=== PATIENT | female | born 1955 | race Caucasian/White ===

== ENCOUNTER 2021-03-11 00:03 | Observation (INO) | payer BC ==
[2021-03-11] MEDS ORDERED: SODIUM CHLORIDE 0.9% 1,000 ML IV STA (01:54)
--- NOTE | 2021-03-11 02:40 | ED ---
Fever HPI - General Chief Complaint: Fever Stated Complaint: Infection Time Seen by Provider: 03/11/21 00:22 Source: EMS Mode of arrival: EMS - History of Present Illness Initial Comments: This patient is a 65-year-old woman who presents here as a transfer from the [facility] and [facility]. The patient has history of stage IV colon cancer with metastases to liver. She had recent chemotherapy middle of January 2021. She had been in [facility] visiting her mother. The patient had the onset of fevers in the morning and then went to the other hospital, s ubsequently being transferred here. The patient is reported to have had chest x-ray that was read as no infiltrate. Urinalysis was negative. Chemistries and CBC unremarkable. Patient had blood and urine cultures which are pending. When I interview the patient, she denies pains. She denies symptoms of infection other than noting the fever. MD Complaint: fever Onset/Timin -: days(s) Associated Symptoms: denies other symptoms Treatments Prior to Arrival: Acetaminophen, other - Related Data Allergies Allergy/AdvReac Type Severity Reaction Status Date / Time nitrofurantoin Allergy Rash/Hives Verified 03/11/21 00:29 [From Macrodantin] Penicillins Allergy Rash/Hives Verified 03/11/21 00:29 sulfamethoxazole Allergy Rash/Hives Verified 03/11/21 00:28 [From Septra] trimethoprim [From Septra] Allergy Rash/Hives Verified 03/11/21 00:28 Review of Systems ROS Statement: Those systems with pertinent positive or pertinent negative responses have been documented in the HPI. ROS Other: All systems not noted in ROS Statement are negative. Constitutional: Reports: fever. Denies: chills, weakness ENT: Denies: ear pain, throat pain Respiratory: Denies: cough, dyspnea, wheezes Cardiovascular: Denies: chest pain, palpitations Gastrointestinal: Reports: nausea. Denies: abdominal pain, vomiting, diarrhea Genitourinary: Denies: dysuria, frequency, hematuria Musculoskeletal: Denies: back pain Skin: Denies: rash Neurological: Denies: headache, weakness Past Medical History Past Medical History: Cancer Additional Past Medical History / Comment(s): Stage 4 colon cancer dx 07/2019. History of Any Multi-Drug Resistant Organisms: None Reported Past Surgical History: Appendectomy, Section, Cholecystectomy, Joint Replacement Additional Past Surgical History / Comment(s): Bilat knee replacements, hemacolectomy, hepatic arterial infusion pump Past Psychological History: No Psychological Hx Reported Smoking Status: Never smoker Past Alcohol Use History: None Reported Past Drug Use History: Marijuana General Exam General appearance: alert, in no apparent distress Head exam: Present: atraumatic, normocephalic Eye exam: Present: normal appearance. Absent: scleral icterus, conjunctival injection ENT exam: Present: normal oropharynx Respiratory exam: Present: normal lung sounds bilaterally. Absent: respiratory distress, wheezes, rales, rhonchi, stridor Cardiovascular Exam: Present: regular rate, normal rhythm, normal heart sounds. Absent: systolic murmur, diastolic murmur, rubs, gallop GI/Abdominal exam: Present: soft. Absent: distended, tenderness, guarding, rebound, rigid, mass Extremities exam: Present: normal inspection, normal capillary refill. Absent: pedal edema, calf tenderness Back exam: Present: normal inspection. Absent: CVA tenderness (R), CVA tenderness (L) Neurological exam: Present: alert Skin exam: Present: warm, dry, intact, normal color. Absent: rash Course Vital Signs 03/11/21 03/11/21 00:14 01:30 Temperature 98.1 F Pulse Rate 90 84 Respiratory 16 18 Rate Blood Pressure 144/81 146/76 O2 Sat by Pulse 100 96 Oximetry Disposition Referrals: Nonstaff,Physician [Primary Care Provider] - 1-2 days
[2021-03-11] MEDS ORDERED: NALOXONE 0.4 MG/ML 1 ML VIAL IV PRN (02:45)
[2021-03-11] MEDS ORDERED: ACETAMINOPHEN TAB 325 MG TAB PO PRN (02:45)
[2021-03-11] MEDS ORDERED: ONDANSETRON 4 MG/2 ML VIAL IVP PRN (02:45)
[2021-03-11 02:55] LABS: Basophils # (A) 0.1 k/uL (0-0.2); Basophils % (A) 1 %; Eosinophils # (A) 0.1 k/uL (0-0.7); Eosinophils % (A) 0 %; HCT 38.7 % (34.0-46.0); HGB 13.2 gm/dL (11.4-16.0); Lymphocytes # (A) 1.1 k/uL (1.0-4.8); Lymphocytes % (A) 10 %; MCH 32.8 pg (25.0-35.0); MCHC 34.1 g/dL (31.0-37.0); MCV 96.1 fL (80.0-100.0); Mean Platelet Volume 7.5; Monocytes # (A) 1.1 k/uL (0-1.0); Monocytes % (A) 11 %; Neutrophils # (A) 8.1 k/uL (1.3-7.7); Neutrophils % (A) 75 %; Platelet Count 210 k/uL (150-450); RBC 4.03 m/uL (3.80-5.40); RDW 13.7 % (11.5-15.5); WBC 10.8 k/uL (3.8-10.6)
[2021-03-11 03:12] LABS: ALT 32 U/L (4-34); AST 44 U/L (14-36); African American GFR (CKD) >90 (>60 ml/min/1.73 sqM); Albumin 3.4 g/dL (3.5-5.0); Alkaline Phosphatase 264 U/L (38-126); Anion Gap 6 mmol/L; Blood Urea Nitrogen 14 mg/dL (7-17); Calcium 9.5 mg/dL (8.4-10.2); Carbon Dioxide 24 mmol/L (22-30); Chloride 110 mmol/L (98-107); Glucose 143 mg/dL (74-99); Non-African American GFR(CKD) 84 (>60 ml/min/1.73 sqM); Potassium 4.1 mmol/L (3.5-5.1); Sodium 140 mmol/L (137-145); Total Bilirubin 1.1 mg/dL (0.2-1.3); Total Protein 6.4 g/dL (6.3-8.2)
[2021-03-11 03:20] LABS: Appearance,Urine Clear (Clear); Bilirubin,Urine Negative (Negative); Blood,Urine Negative (Negative); Color,Urine Light Yellow; Glucose,Urine (UA) Negative (Negative); Ketones,Urine Negative (Negative); Leukocyte Esterase,Urine Small (Negative); Mucus,Urine Rare /hpf; Nitrite,Urine Negative (Negative); Protein,Urine Negative (Negative); RBC,Urine <1 /hpf (0-5); Specific Gravity,Urine 1.009 (1.001-1.035); Urobilinogen,Urine <2.0 mg/dL (<2.0); WBC,Urine 10 /hpf (0-5)
[2021-03-11] MEDS: SODIUM CHLORIDE 0.9% 1,000 ML IV SCH ×3 (03:27→22:19)
[2021-03-11] MEDS ORDERED: PANTOPRAZOLE 40 MG TABLET PO STA (07:24)
[2021-03-11] MEDS: FAMOTIDINE 20 MG TAB PO SCH ×2 (07:45→22:18)
[2021-03-11] MEDS ORDERED: LIDOCAINE-PRILOCAINE 2.5-2.5% CREAM 5 GM TUBE TOPICAL PRN (10:24)
[2021-03-11] MEDS ORDERED: ONDANSETRON ODT 4 MG TAB PO PRN (10:24)
[2021-03-11] MEDS ORDERED: PANTOPRAZOLE 40 MG TABLET PO SCH (10:30)
--- NOTE | 2021-03-11 11:22 | P.HPIM ---
History of Present Illness Patient is a pleasant 65-year-old female was visiting [facility] found to have fever when she was visiting her mother is of which have blood cultures were obtained although workup was done which was negative except for elevated white blood cell count. Patient does have history of colon cancer received chemotherapy and month of January patient has metastatic had metastatic disease. Patient denied any shortness of breath increases swelling in the lower legs her pain and leg in the legs. Patient didn't have any fever here. Chest x-ray did not show any significant abnormality from [place] as per the radiologist's reading. Urinalys is there was negative urinalysis here is mildly abnormal but not impressive for infection patient doesn't have any UTI symptoms of pneumonia symptoms patient has some musculoskeletal neck pain beyond which are all other review of systems is negative. Patient has a Fever patient doesn't have any flulike symptoms either. Because of which I wanted to rule out DVT because of which I ordered d-dimer which came and elevated, will order CT angios the chest rule out any pulmonary embolism are also will order Doppler of the bilateral lower extremities. If they are negative, patient can be discharged will discharge the patient on empiric antibiotics. Patient is presently relatively stable. REVIEW OF SYSTEMS: CONSTITUTIONAL: no malaise, no fatigue. HEENT: No recent visual problems or hearing problems. Denied any sore throat. CARDIOVASCULAR: No chest pain, orthopnea, PND, no palpitations, no syncope. PULMONARY: No shortness of breath, no cough, no hemoptysis. GASTROINTESTINAL: No diarrhea, no nausea, no vomiting, no abdominal pain. NEUROLOGICAL: No headaches, no weakness, no numbness. HEMATOLOGICAL: Denies any bleeding or petechiae. GENITOURINARY: Denies any burning micturition, frequency, or urgency. MUSCULOSKELETAL/RHEUMATOLOGICAL: Denies any joint pain, swelling, or any muscle pain. ENDOCRINE: Denies any polyuria or polydipsia. The rest of the 14-point review of systems is negative. PHYSICAL EXAMINATION: GENERAL: The patient is alert and oriented x3, not in any acute distress. Well developed, well nourished. HEENT: Pupils are round and equally reacting to light. EOMI. No scleral icterus. No conjunctival pallor. Normocephalic, atraumatic. No pharyngeal erythema. No thyromegaly. CARDIOVASCULAR: S1 and S2 present. No murmurs, rubs, or gallops. PULMONARY: Chest is clear to auscultation, no wheezing or crackles. ABDOMEN: Soft, nontender, nondistended, normoactive bowel sounds. No palpable organomegaly. MUSCULOSKELETAL: No joint swelling or deformity. EXTREMITIES: No cyanosis, clubbing, or pedal edema. NEUROLOGICAL: Gross neurological examination did not reveal any focal deficits. SKIN: No rashes. Assessment and plan -Fever, systemic inflammatory response: Etiology of this is not clear at this time we will rule out any DVT or pulmonary embolism no clear evidence of infection at this time patient will be continue on empiric the antibiotic can be viral infection at can be secondary to malignancy itself. Awaiting CT angios the chest and Doppler bilateral lower extremities. If they're negative patient will be discharged on 30 days of Ceftin and will follow-up on the cultures that were done here. -History of for metastatic colon cancer for which patient is receiving chemotherapy was diagnosed in month of July last chemo was in January -Leukocytosis secondary to assessment #1 DVT prophylaxis: Early ambulation Past Medical History Past Medical History: Cancer Additional Past Medical History / Comment(s): Stage 4 colon cancer dx 07/2019. History of Any Multi-Drug Resistant Organisms: None Reported Past Surgical History: Appendectomy, Section, Cholecystectomy, Joint Replacement Additional Past Surgical History / Comment(s): Bilat knee replacements, hemacolectomy, hepatic arterial infusion pump Past Psychological History: No Psychological Hx Reported Smoking Status: Never smoker Past Alcohol Use History: None Reported Past Drug Use History: Marijuana Medications and Allergies Home Medications Medication Instructions Recorded Confirmed Type Cefuroxime Axetil [Ceftin] 500 mg PO BID 3 Days #6 tab 03/11/21 Rx LORazepam [Ativan] 0.5 mg PO HS PRN 03/11/21 03/11/21 History Lidocaine-Prilocaine Cream [Emla 1 applic TOPICAL DIRECTED PRN 03/11/21 03/11/21 History Cream 2.5%/2.5%] Ondansetron Odt [Zofran ODT] 4 mg PO Q6H PRN 03/11/21 03/11/21 History Pantoprazole [Protonix] 40 mg PO DAILY 03/11/21 03/11/21 History Prochlorperazine [Compazine] 10 mg PO Q6H PRN 03/11/21 03/11/21 History amLODIPine BESYLATE/BENAZEPRIL 1 tab PO DAILY #0 03/11/21 03/11/21 Rx [amLODIPine BESYLATE/BENAZEPRIL 5-20 MG] ursodioL [Ursodiol] 300 mg PO BID 03/11/21 03/11/21 History Allergies Allergy/AdvReac Type Severity Reaction Status Date / Time nitrofurantoin Allergy Rash/Hives Verified 03/11/21 07:43 [From Macrodantin] Penicillins Allergy Rash/Hives Verified 03/11/21 07:43 sulfamethoxazole Allergy Rash/Hives Verified 03/11/21 07:43 [From Septra] trimethoprim [From Febra] Allergy Rash/Hives Verified 03/11/21 07:43 Physical Exam Vitals: Vital Signs Temp Pulse Resp BP Pulse Ox 03/11/21 07:04 97.2 F L 90 18 137/71 97 03/11/21 05:00 18 03/11/21 03:36 85 18 122/84 96 03/11/21 01:30 84 18 146/76 96 03/11/21 00:14 98.1 F 90 16 144/81 100 Intake and Output 03/10/21 03/11/21 03/11/21 22:59 06:59 14:59 Other: Weight 79.379 kg Results CBC & Chem 7: 03/11/21 02:29 03/11/21 02:29 Labs: Abnormal Lab Results - Last 24 Hours (Table) 03/11/21 03/11/21 03/11/21 Range/Units 02:29 02:29 02:29 WBC 10.8 H (3.8-10.6) k/uL Neutrophils # 8.1 H (1.3-7.7) k/uL Monocytes # 1.1 H (0-1.0) k/uL D-Dimer (<0.60) mg/L FEU Chloride 110 H (98-107) mmol/L Glucose 143 H (74-99) mg/dL AST 44 H (14-36) U/L Alkaline Phosphatase 264 H (38-126) U/L Albumin 3.4 L (3.5-5.0) g/dL Ur Leukocyte Esterase Small H (Negative) Urine WBC 10 H (0-5) /hpf Urine Mucus Rare H (None) /hpf 03/11/21 Range/Units 10:45 WBC (3.8-10.6) k/uL Neutrophils # (1.3-7.7) k/uL Monocytes # (0-1.0) k/uL D-Dimer 4.27 H (<0.60) mg/L FEU Chloride (98-107) mmol/L Glucose (74-99) mg/dL AST (14-36) U/L Alkaline Phosphatase (38-126) U/L Albumin (3.5-5.0) g/dL Ur Leukocyte Esterase (Negative) Urine WBC (0-5) /hpf Urine Mucus (None) /hpf
--- NOTE | 2021-03-11 12:28 | CT ---
EXAMINATION TYPE: CT chest angio for PE DATE OF EXAM: 03/11/2021 COMPARISON: None HISTORY: 65-year-old female fever, weakness, history of colon cancer, shortness of breath, assess for pulmonary embolus. TECHNIQUE: Contiguous axial scanning of the chest performed with IV Contrast, patient injected with 6 9 mL of Isovue 370. Coronal/sagittal MIP reconstructions performed. CT DLP: 313.8 mGycm Automated exposure control for dose reduction was used. FINDINGS: Heart upper limits of normal in size without pericardial effusion. No flattening of the interventricu lar septum reflux of contrast into the hepatic veins. No thoracic lymphadenopathy. Satisfactory opacification of the central pulmonary arterial system though some of the segmental and more distal arterial branches are more suboptimal in density, for example, segmental left upper lobe branch, axial image 31, coronal image 19. Otherwise, no definite pulmonary embolus is seen. Prominent strandy right greater than left basilar areas of atelectasis. Numerous scattered small bilateral pulmonary nodules, largest measuring 6 mm are suspicious. No consolidation or pleural effusion. Numerous nodular vascular blushes within the liver measuring up to 9 mm, likely small areas of vascul ar shunting or flash filling hemangiomas. A couple cysts are present measuring up to 2.3 cm. On high contrast windowing, there is suggestion of subtle underlying multiple hypodense liver lesions measuring up to 3.4 cm. A contour deformity anterior left liver margin measures 1.7 cm. Some diverticular change noted at the splenic flexure of the colon. No osseous destructive process. IMPRESSION: 1. SOME OF THE SEGMENTAL AND MORE DISTAL ARTERIAL BRANCHES ARE SUBOPTIMALLY OPACIFIED. FOR EXAMPLE, A LEFT UPPER LOBE SEGMENTAL BRANCH, AXIAL IMAGE 31 AND CORONAL IMAGE 19. CONSIDER SHORT INTERVAL FOLLO W-UP TO REASSESS. WE SUSPECT SUBOPTIMAL OPACIFICATION RATHER THAN PULMONARY EMBOLUS AT THIS TIME. IF HIGH CLINICAL SUSPICION FOR PE, CONSIDER PROCEEDING WITH TREATMENT. 2. NUMEROUS SMALL PULMONARY NODULES MEASURING UP TO 6 MM SUSPICIOUS FOR METASTATIC DISEASE. 3. VERY SUBTLE HYPODENSE LIVER LESIONS ON HIGH CONTRAST WINDOWING. LESIONS MEASURING UP TO 3.4 CM. GI ROSHNI PATIENT'S HISTORY OF COLON CANCER, HEPATIC METASTASES ARE NOT EXCLUDED.
--- NOTE | 2021-03-11 13:05 | US ---
EXAMINATION TYPE: US venous doppler duplex LE DATE OF EXAM: 03/11/2021 12:38 PM COMPARISON: NONE CLINICAL HISTORY: DVT. Fever SIDE PERFORMED: Bilateral TECHNIQUE: The lower extremity deep venous system is examined utilizing real time linear array sonog shasha with graded compression, doppler sonography and color-flow sonography. FINDINGS: VESSELS IMAGED: Common Femoral Vein Deep Femoral Vein Greater Saphenous Vein * Femoral Vein Popliteal Vein Small Saphenous Vein * Proximal Calf Veins (* superficial vessels) Left pop fossa Bakers cyst measuring 3.3x1.2x3.4cm Right Leg: Negative for DVT Left Leg: Negative for DVT IMPRESSION: 1. No evidence for DVT within the bilateral lower extremities imaged from the groin to the upper calv es. 2. Small left-sided Villalta's cyst measuring 3.4 cm.
[2021-03-11] MEDS: ursodioL 300 MG CAP PO SCH (22:18)
[2021-03-11] MEDS ORDERED: LORazepam 0.5 MG TAB PO STA (22:42)
[2021-03-12] MEDS: SODIUM CHLORIDE 0.9% 1,000 ML IV SCH ×2 (03:07→08:05)
[2021-03-12 07:21] VITALS: BP 118/74; PULSE 100; RESP 16; TEMP 98
[2021-03-12] MEDS ORDERED: PANTOPRAZOLE 40 MG TABLET PO SCH (07:30)
[2021-03-12] MEDS: FAMOTIDINE 20 MG TAB PO SCH (08:05)
[2021-03-12] MEDS: ursodioL 300 MG CAP PO SCH (09:08)
--- NOTE | 2021-03-16 08:21 | P.DS ---
Providers Date of admission: 03/11/21 02:45 Expected date of discharge: 03/12/21 Attending physician: Mark Boss MD Consults: 03/11/21 14:32 Consult Physician Routine Consulting Provider: Yarely Crenshaw Consult Reason/Comments: Fever etiology Do you want consulting provider notified?: Yes Primary care physician: Physician Nonstaff Hospital Course: Final diagnosis -Fever, systemic inflammatory response: Etiology of this is not clear at this time can be viral infection at can be secondary to malignancy itself. -Elevated d-dimer with no evidence of PE or DVT -History of metastatic colon cancer for which patient is receiving chemotherapy was diagnosed in month of July last chemo was in January -Leukocytosis secondary to assessment #1 -DVT prophylaxis Discharge disposition Patient is being discharged in a stable condition with guarded prognosis to home. Patient will follow-up with her primary care provider and oncologist out of [place] in the outpatient setting upon discharge. Patient has a flight this afternoon to go home. Total time taken is greater than 35 minutes. Hospital course Patient is a pleasant 65-year-old female was visiting [facility] found to have fever when she was visiting her mother is of which have blood cultures were obtained although workup was done which was negative except for elevated white blood cell count. Patient does have history of colon cancer received chemotherapy and of January patient has metastatic had metastatic disease. Patient denied any shortness of breath increases swelling in the lower legs her pain and leg in the legs. Patient didn't have any fever here. Chest x-ray did not show any significant abnormality from [place] as per the radiologist's reading. Urinalysis there was negative urinalysis here is mildly abnormal but not impressive for infection patient doesn't have any UTI symptoms of pneumonia symptoms patient has some musculoskeletal neck pain beyond which are all other review of systems is negative. Patient has a Fever patient doesn't have any flulike symptoms either. Because of which I wanted to rule out DVT because of which I ordered d-dimer which came and elevated, will order CT angios the chest rule out any pulmonary embolism are also will order Doppler of the bilateral lower extremities. If they are negative, patient can be discharged will discharge the patient on empiric antibiotics. Patient is presently relatively stable. 03/12/2021 Patient is seen in follow-up with no acute overnight issues noted. Patient underwent venous doppler and CTA which were negative for PE and DVT, but numerous pulmonary nodules noted. Patient does follow with oncology in [place] and is receiving treatment for colon ca with mets. Patient encouraged to follow up once returning to [place] this week. Patient is anticipating discharge today as she has a flight to [place] this afternoon and her sister is coming here to get her. Currently no reports of chest pain, shortness of breath, or palpitations. Patient is afebrile. No reports of nausea or vomiting and patient is tolerating diet. Patient will be discharged home. GENERAL: The patient is alert and oriented x3, not in any acute distress. Well developed, well nourished. HEENT: Pupils are round and equally reacting to light. EOMI. No scleral icterus. No conjunctival pallor. Normocephalic, atraumatic. No pharyngeal erythema. No thyromegaly. CARDIOVASCULAR: S1 and S2 present. No murmurs, rubs, or gallops. PULMONARY: Chest is clear to auscultation, no wheezing or crackles. ABDOMEN: Soft, nontender, nondistended, normoactive bowel sounds. No palpable organomegaly. MUSCULOSKELETAL: No joint swelling or deformity. EXTREMITIES: No cyanosis, clubbing, or pedal edema. NEUROLOGICAL: Gross neurological examination did not reveal any focal deficits. SKIN: No rashes. Please refer to medication reconciliation sheet for a list of medications. Patient Condition at Discharge: Stable Plan - Discharge Summary New Discharge Prescriptions: New Acetaminophen Tab [Tylenol] 650 mg PO Q6HR PRN tab PRN Reason: Mild Pain Or Fever > 100.5 Cefuroxime Axetil [Ceftin] 500 mg PO BID 3 Days #6 tab Continue Lidocaine-Prilocaine Cream [Emla Cream 2.5%/2.5%] 1 applic TOPICAL DIRECTED PRN PRN Reason: PORT ACCESS LORazepam [Ativan] 0.5 mg PO HS PRN PRN Reason: Insomnia Prochlorperazine [Compazine] 10 mg PO Q6H PRN PRN Reason: Nausea ursodioL [Ursodiol] 300 mg PO BID Pantoprazole [Protonix] 40 mg PO DAILY Ondansetron Odt [Zofran ODT] 4 mg PO Q6H PRN PRN Reason: Nausea Changed amLODIPine BESYLATE/BENAZEPRIL [amLODIPine BESYLATE/BENAZEPRIL 5-20 MG] 1 tab PO DAILY #0 Discharge Medication List Cefuroxime Axetil [Ceftin] 500 mg PO BID 3 Days #6 tab 03/11/21 [Rx] LORazepam [Ativan] 0.5 mg PO HS PRN 03/11/21 [History] Lidocaine-Prilocaine Cream [Emla Cream 2.5%/2.5%] 1 applic TOPICAL DIRECTED PRN 03/11/21 [History] Ondansetron Odt [Zofran ODT] 4 mg PO Q6H PRN 03/11/21 [History] Pantoprazole [Protonix] 40 mg PO DAILY 03/11/21 [History] Prochlorperazine [Compazine] 10 mg PO Q6H PRN 03/11/21 [History] amLODIPine BESYLATE/BENAZEPRIL [amLODIPine BESYLATE/BENAZEPRIL 5-20 MG] 1 tab PO DAILY #0 03/11/21 [Rx] ursodioL [Ursodiol] 300 mg PO BID 03/11/21 [History] Acetaminophen Tab [Tylenol] 650 mg PO Q6HR PRN tab 03/12/21 [Rx] Follow up Appointment(s)/Referral(s): Nonstaff,Physician [Primary Care Provider] - 3 Days Patient Instructions/Handouts: Cefuroxime (By mouth), Fever in Adults (GEN) Activity/Diet/Wound Care/Special Instructions: follow-up with primary care provider in [place] along with oncologist Continue with antibiotics for 3 days and then may discontinue Monitor closely for fevers and treat with Tylenol and follow-up with primary care provider Continue current diet Discharge Disposition: HOME SELF-CARE
== END 2021-03-12 12:13 | disposition home or self-care (01) ==
LOC: EC 00:03 → 5NMEDONC 02:45
PROVIDERS: ADMIT Internal Medicine; ATTEND Internal Medicine
DX: R50.9 Fever, unspecified (principal); R65.10 Systemic inflammatory response syndrome (SIRS) of non-infectious origin without acute organ dysfunction; Z20.822 Contact with and (suspected) exposure to COVID-19; R79.89 Other specified abnormal findings of blood chemistry; C18.9 Malignant neoplasm of colon, unspecified; D72.829 Elevated white blood cell count, unspecified; Z79.899 Other long term (current) drug therapy; Z96.653 Presence of artificial knee joint, bilateral
CPT/HCPCS: 96366; 96361; 96365; 99285; 36415; 85379; 80053; 83605; 85025; 81001; 87040; 87635; 93970; 71275; G0378 ×2; J0696 ×2; Q9967; 76830; 76856